=== PATIENT | male | born 1960 | race Caucasian/White ===

== ENCOUNTER 2018-06-18 04:00 | Emergency (ER) | payer MEDICARE ==
[2018-06-18 04:46] LABS: Bilirubin Negative (Negative); Blood, Urine Negative (Negative); Clarity CLEAR (Clear); Glucose, Urine (Dipstick) >=1000 mg/dL (Negative); Leukocyte Negative (Negative); Nitrite Negative (Negative); Protein, Urine (Dipstick) Negative (Neg-Trace); Specific Gravity, Urine 1.016 (1.002-1.036); Urobilinogen 0.2 mg/dL (0.2-1.0)
[2018-06-18 05:50] LABS: #Lymphocytes 0.7 thou/uL (1.20-3.40); #Monocytes 0.4 thou/uL (0.11-0.59); #Neutrophils 8.3 thou/uL (1.40-6.50); %Lymphocytes 7.3 % (21.0-51.0); %Monocytes 3.8 % (0.0-10.0); %Neutrophils 88.9 % (42.0-75.0); Hemoglobin 14.7 g/dL (14.0-18.0); Mean Corpuscular HGB CONC 34.9 g/dL (32.0-36.0); Mean Corpuscular Hemoglobin 31.3 pg (27.0-31.0); Mean Corpuscular Volume 89.7 fL (78.0-98.0); Mean Platelet Volume 6.8 fL (7.4-10.4); Platelet Count 304 thou/uL (130-400); RBC Distribution Width 10.7 % (11.5-14.5); Red Blood Cell (RBC) Count 4.71 mill/uL (4.70-6.10); White Blood Cell (WBC) Count 9.3 thou/uL (4.8-10.8)
[2018-06-18 06:12] LABS: ALT (SGPT) 25 U/L (8-55); AST (SGOT) 22 U/L (5-34); Acetaminophen Less than 6.0 mcg/mL (10.0-30.0); Albumin 3.9 g/dL (3.5-5.0); Alcohol Less than 10 mg/dL (Less than 10); Alkaline Phosphatase 96 U/L (40-150); Anion Gap 11 mmol/L (10-20); BUN (Urea Nitrogen) 15 mg/dL (8.4-25.7); Bilirubin, Total 0.2 mg/dL (0.2-1.2); Calc. Creatinine Clearance 0 mL/min (70-130); Calcium 8.8 mg/dL (7.8-10.44); Carbon Dioxide 24 mmol/L (22-29); Chloride 103 mmol/L (98-107); Estimated GFR-MDRD 73; Globulin 2.5 g/dL (2.4-3.5); Glucose 392 mg/dL (70-105); Potassium 4.2 mmol/L (3.5-5.1); Protein, Total 6.4 g/dL (6.0-8.3); Salicylate Less than 8.0 mg/dL (15.0-30.0); Sodium 134 mmol/L (136-145)
[2018-06-18 06:14] LABS: Amphetamine Not Detected (NotDetected); Barbiturates Screen Detected (NotDetected); Benzodiazepine Screen Not Detected (NotDetected); Cocaine Metabolite Screen Not Detected (NotDetected); Medtox Control Line Valid? VALID (VALID); Medtox Reader # READER 4; Methadone Not Detected (NotDetected); Methamphetamine Not Detected (NotDetected); Opiate Screen Not Detected (NotDetected); Oxycodone Screen Not Detected (NotDetected); Phencyclidine (PCP) Not Detected (NotDetected); THC/Cannabinoid Screen Not Detected (NotDetected); Tricyclic Screen Not Detected (NotDetected)
--- NOTE | 2018-06-18 07:36 | CT ---
CT HEAD NONCONTRAST: Date: 06/18/18 INDICATION: Syncope and collapse. FINDINGS: Reference is made to 11/30/14. There is normal size ventricular system. No acute intracranial hemorrhage, mass effect, or midline sh ift. Imaged paranasal sinuses are clear. IMPRESSION: No acute intracranial abnormalities. POS: DELISA
--- NOTE | 2018-06-18 07:37 | CT ---
CERVICAL SPINE CT NONCONTRAST: Date: 06/18/18 INDICATION: Syncope and collapse. Neck pain. FINDINGS: Moderate multilevel degenerative change is present within the cervical spine. There is no evidence of acute fracture or subluxation. IMPRESSION: No acute osseous abnormality of the cervical spine. POS: DELISA
--- NOTE | 2018-06-18 07:45 | RAD ---
FRONTAL VIEW CHEST: Date: 06/18/18 INDICATION: Syncope and collapse with dyspnea and hypoglycemia. COMPARISON: 11/30/14. FINDINGS: Cardiac silhouette is accentuated by portable technique. There is no lobar consolidation, effusion, o r pneumothorax. IMPRESSION: No focal consolidation. POS: ERNIEK
--- NOTE | 2018-06-21 12:47 | EKG ---
Test Reason : Blood Pressure : / mmHG Vent. Rate : 108 BPM Atrial Rate : 108 BPM P-R Int : 172 ms QRS Dur : 070 ms QT Int : 348 ms P-R-T Axes : 040 007 048 degrees QTc Int : 466 ms Sinus tachycardia Confirmed by DWIGHT VILLANUEVA ([id number]), editor magazine [employer]KIT VENEGAS ([id number]) on 06/21/2018 12:47:19 PM Referred By: Confirmed By:DWIGHT VILLANUEVA
== END 2018-06-18 06:45 | disposition home or self-care (01) ==
LOC: ERS 04:00
DX: E11.65 Type 2 diabetes mellitus with hyperglycemia (principal); F32.9 Major depressive disorder, single episode, unspecified; I10 Essential (primary) hypertension; E78.00 Pure hypercholesterolemia, unspecified
CPT/HCPCS: 36415; 36416; 70450; 71045; 72125; 80053; 80306; 80307; 81003; 84484; 85025; 87086; 93005; 96360

== ENCOUNTER 2021-02-15 19:55 | Emergency (ER) | payer MEDICARE | END 2021-02-15 21:42 | disposition home or self-care (01) | LOC: ERS 19:55 | DX: S82.841A Displaced bimalleolar fracture of right lower leg, initial encounter for closed fracture (principal); E10.9 Type 1 diabetes mellitus without complications; E78.5 Hyperlipidemia, unspecified; I10 Essential (primary) hypertension; Z79.899 Other long term (current) drug therapy; X58.XXXA Exposure to other specified factors, initial encounter | CPT/HCPCS: 29515 ==

== ENCOUNTER → 2021-02-22 | Day surgery (SDC) | payer MEDICARE, MEDICAID ==
[2021-02-21 13:27] VITALS: BMI 31.2
[~2021-02-22] MED LIST: Bupivacaine HCl 0.5%/Epinephrine 1:200,000/PF 30 ml Vial ONE; Fentanyl 100 MCG/2 ML VIAL ONE; HYDROcodone/Acetaminophen 5/325 mg Tablet ONE; HYDROmorphone 0.5 MG/0.5 ML SYRINGE ONE; Insulin Regular 300 UNITS/3 ML VIAL ONE; Ketorolac Tromethamine 30 MG/ML VIAL ONE; Lidocaine 1% (PF) 30 ML VIAL ONE; Lidocaine 1% PF 5 ML VIAL ONE; Midazolam HCl 2 mg/2 ml Vial ONE; Ondansetron PF 4 MG/2 ML Vial ONE; PROPOFOL 200 MG/20 ML VIAL ONE
== END ==
LOC: SDC 11:22
PROVIDERS: ATTEND Orthopaedic Surgery
PROC: 0QSJ04Z Reposition Right Fibula with Internal Fixation Device, Open Approach (ICD-10-PCS; principal; 2021-02-22)
PROC: 0QSG04Z Reposition Right Tibia with Internal Fixation Device, Open Approach (ICD-10-PCS; 2021-02-22)
PROC: 3E0T3BZ Introduction of Anesthetic Agent into Peripheral Nerves and Plexi, Percutaneous Approach (ICD-10-PCS; 2021-02-22)
DX: S82.841A Displaced bimalleolar fracture of right lower leg, initial encounter for closed fracture (principal); E10.9 Type 1 diabetes mellitus without complications; I25.10 Atherosclerotic heart disease of native coronary artery without angina pectoris; E78.00 Pure hypercholesterolemia, unspecified; G89.29 Other chronic pain; G40.909 Epilepsy, unspecified, not intractable, without status epilepticus; I10 Essential (primary) hypertension; E78.5 Hyperlipidemia, unspecified; M19.90 Unspecified osteoarthritis, unspecified site; Z79.899 Other long term (current) drug therapy; Z95.1 Presence of aortocoronary bypass graft; W13.8XXA Fall from, out of or through other building or structure, initial encounter
CPT/HCPCS: 36416; 76000; C1713; J0690; J1170; J1815; J1885; J2001; J2250; J2405; J2704; J3010

== ENCOUNTER 2023-01-15 18:42 | Observation (INO) | payer MEDICARE, MEDICAID ==
[~2023-01-15 18:42] MED LIST changes: -Bupivacaine HCl 0.5%/Epinephrine 1:200,000/PF 30 ml Vial ONE; -Fentanyl 100 MCG/2 ML VIAL ONE; -HYDROcodone/Acetaminophen 5/325 mg Tablet ONE; -HYDROmorphone 0.5 MG/0.5 ML SYRINGE ONE; -Insulin Regular 300 UNITS/3 ML VIAL ONE; +Iopamidol-370 76% 500 ML MDV (1 ML CHARGE) ONE; -Ketorolac Tromethamine 30 MG/ML VIAL ONE; -Lidocaine 1% (PF) 30 ML VIAL ONE; -Lidocaine 1% PF 5 ML VIAL ONE; -Midazolam HCl 2 mg/2 ml Vial ONE; -Ondansetron PF 4 MG/2 ML Vial ONE; -PROPOFOL 200 MG/20 ML VIAL ONE
[2023-01-15 19:45] LABS: #Eosinphils 0.1 thou/uL (0.0-0.7); #Monocytes 0.4 thou/uL (0.11-0.59); %Basophils 0.2 % (0.0-1.0); %Lymphocytes 34.1 % (21.0-51.0); %Monocytes 7.5 % (0.0-10.0); %Neutrophils 56.8 % (42.0-75.0); Hemoglobin 14.7 g/dL (14.0-18.0); Mean Corpuscular HGB CONC 35.3 g/dL (32.0-36.0); Mean Corpuscular Hemoglobin 31.5 pg (27.0-31.0); Mean Corpuscular Volume 89.3 fl (78.0-98.0); Mean Platelet Volume 8.9 fL (7.4-10.4); Platelet Count 221 10x3/uL (130-400); RBC Distribution Width 11.9 % (11.5-14.5); Red Blood Cell (RBC) Count 4.66 mill/uL (4.70-6.10); White Blood Cell (WBC) Count 5.2 10x3/uL (4.8-10.8)
[2023-01-15 20:12] LABS: ALT (SGPT) 21 U/L (8-55); AST (SGOT) 17 U/L (5-34); Alkaline Phosphatase 88 U/L (40-110); Anion Gap 16 mmol/L (10-20); BUN (Urea Nitrogen) 11 mg/dL (8.4-25.7); Bilirubin, Total 0.3 mg/dL (0.2-1.2); Calc. Creatinine Clearance 0 mL/min (70-130); Calcium 8.6 mg/dL (7.8-10.44); Carbon Dioxide 24 mmol/L (23-31); Chloride 108 mmol/L (98-107); Estimated GFR 99; Globulin 2.3 g/dL (2.4-3.5); Glucose 88 mg/dL (80-115); Potassium 3.5 mmol/L (3.5-5.1); Protein, Total 6.3 g/dL (5.8-8.1); Sodium 144 mmol/L (136-145)
[2023-01-15] MEDS ORDERED: Nitroglycerin 2% Ointment 1 INCH/1 GM Packet ONE (20:57)
[2023-01-15] MEDS ORDERED: Nitrazine Tape 1 ROLL ONE (20:57)
[2023-01-15] MEDS ORDERED: Aspirin Chewable 81 MG TAB PO PRN (23:12)
[2023-01-15] MEDS ORDERED: Nitroglycerin 0.4 MG TAB (25 Tab Bottle) SL PRN (23:12)
[2023-01-15] MEDS ORDERED: HumaLOG 300 UNITS/3 ML VIAL SC PRN ×2 (23:12)
[2023-01-15] MEDS ORDERED: Dextrose 50% Abboject 50 ML SYRINGE SLOW IVP PRN (23:12)
[2023-01-15] MEDS ORDERED: Dextrose 5% in Water 1,000 ML IV PRN (23:12)
[2023-01-15] MEDS ORDERED: Glucagon 1 MG/ML KIT IM PRN (23:12)
[2023-01-15] MEDS ORDERED: Morphine 2 MG/ML VIAL SLOW IVP PRN (23:18)
[2023-01-15] MEDS ORDERED: Ondansetron ODT 4 MG TAB PO PRN (23:19)
[2023-01-15] MEDS ORDERED: Ondansetron PF 4 MG/2 ML Vial IVP PRN (23:19)
[2023-01-15 23:24] LABS: Troponin I Less than 0.010 ng/mL (< 0.028)
[2023-01-16 00:02] VITALS: BMI 31.2
[2023-01-16] MEDS ORDERED: Lactated Ringer's 1,000 ML IV SCH (00:30)
[2023-01-16] MEDS: HYDROcodone/Acetaminophen 5/325 mg Tablet PO PRN ×2 (00:52→20:14)
[2023-01-16 02:31] LABS: Troponin I 0.015 ng/mL (< 0.028)
[2023-01-16] MEDS: Nitroglycerin 2% Ointment 1 INCH/1 GM Packet TOP SCH ×3 (05:36→21:03)
[2023-01-16 05:47] LABS: #Eosinphils 0.1 thou/uL (0.0-0.7); #Monocytes 0.4 thou/uL (0.11-0.59); #Neutrophils 3.5 thou/uL (1.40-6.50); %Basophils 0.4 % (0.0-1.0); %Eosinophils 1.1 % (0.0-10.0); %Lymphocytes 27.6 % (21.0-51.0); %Monocytes 7.7 % (0.0-10.0); Hemoglobin 14.2 g/dL (14.0-18.0); Mean Corpuscular HGB CONC 34.8 g/dL (32.0-36.0); Mean Corpuscular Hemoglobin 31.5 pg (27.0-31.0); Mean Corpuscular Volume 90.5 fl (78.0-98.0); Mean Platelet Volume 9.1 fL (7.4-10.4); Platelet Count 218 10x3/uL (130-400); RBC Distribution Width 11.9 % (11.5-14.5); Red Blood Cell (RBC) Count 4.51 mill/uL (4.70-6.10); White Blood Cell (WBC) Count 5.6 10x3/uL (4.8-10.8)
[2023-01-16 06:14] LABS: Anion Gap 11 mmol/L (10-20); BUN (Urea Nitrogen) 14 mg/dL (8.4-25.7); Calc. Creatinine Clearance 127 mL/min (70-130); Calcium 8.9 mg/dL (7.8-10.44); Carbon Dioxide 28 mmol/L (23-31); Chloride 106 mmol/L (98-107); Cholesterol 169 mg/dl (< 200 Desired); Estimated GFR 98; Glucose 219 mg/dL (80-115); HDL Cholesterol 42 mg/dL (>60 Neg Risk); LDL Cholesterol, Calculated 87 mg/dL; Potassium 4.2 mmol/L (3.5-5.1); Sodium 141 mmol/L (136-145); Triglycerides 201 mg/dL (Less than 150)
[2023-01-16] MEDS: Aspirin 81 mg Enteric Coated Tablet PO SCH (08:48)
[2023-01-16] MEDS ORDERED: Regadenoson 0.4 MG/5 ML SYRINGE ONE (10:16)
[2023-01-16] MEDS ORDERED: Hydrochlorothiazide 25 MG TAB PO SCH (21:00)
[2023-01-16] MEDS ORDERED: Rosuvastatin 20 MG TAB PO SCH (21:00)
[2023-01-16] MEDS ORDERED: Losartan 25 MG TAB PO SCH (21:00)
[2023-01-17] MEDS: Nitroglycerin 2% Ointment 1 INCH/1 GM Packet TOP SCH (05:11)
[2023-01-17] MEDS: HYDROcodone/Acetaminophen 5/325 mg Tablet PO PRN (05:13)
[2023-01-17 05:30] LABS: #Eosinphils 0.1 thou/uL (0.0-0.7); #Monocytes 0.7 thou/uL (0.11-0.59); #Neutrophils 6.5 thou/uL (1.40-6.50); %Basophils 0.2 % (0.0-1.0); %Monocytes 7.8 % (0.0-10.0); %Neutrophils 74.7 % (42.0-75.0); Hemoglobin 13.8 g/dL (14.0-18.0); Mean Corpuscular HGB CONC 35.1 g/dL (32.0-36.0); Mean Corpuscular Hemoglobin 31.3 pg (27.0-31.0); Mean Corpuscular Volume 89.1 fl (78.0-98.0); Mean Platelet Volume 8.9 fL (7.4-10.4); Platelet Count 195 10x3/uL (130-400); RBC Distribution Width 11.8 % (11.5-14.5); Red Blood Cell (RBC) Count 4.41 mill/uL (4.70-6.10); White Blood Cell (WBC) Count 8.7 10x3/uL (4.8-10.8)
[2023-01-17 05:53] LABS: Anion Gap 10 mmol/L (10-20); BUN (Urea Nitrogen) 12 mg/dL (8.4-25.7); Calc. Creatinine Clearance 124 mL/min (70-130); Calcium 8.9 mg/dL (7.8-10.44); Carbon Dioxide 28 mmol/L (23-31); Chloride 105 mmol/L (98-107); Estimated GFR 97; Glucose 71 mg/dL (80-115); Potassium 3.8 mmol/L (3.5-5.1); Sodium 139 mmol/L (136-145)
[2023-01-17] MEDS: Aspirin 81 mg Enteric Coated Tablet PO SCH (08:17)
[2023-01-17 09:31] VITALS: BP 123/60; TEMP 97.8
== END 2023-01-17 14:00 | disposition home or self-care (01) ==
LOC: ERS 18:42 → 2SW 22:32
PROVIDERS: ADMIT Student in an Organized Health Care Education/Training Program; ATTEND Internal Medicine
DX: R07.9 Chest pain, unspecified (principal); R06.09 Other forms of dyspnea; I25.10 Atherosclerotic heart disease of native coronary artery without angina pectoris; I10 Essential (primary) hypertension; E10.9 Type 1 diabetes mellitus without complications; E78.5 Hyperlipidemia, unspecified; I25.2 Old myocardial infarction; G40.909 Epilepsy, unspecified, not intractable, without status epilepticus; F32.A Depression, unspecified; Z79.899 Other long term (current) drug therapy; Z95.5 Presence of coronary angioplasty implant and graft; Z79.4 Long term (current) use of insulin
CPT/HCPCS: 71045; 71275; 78452; 80048 ×2; 80053; 80061; 82962 ×2; 84443; 84484 ×3; 85025 ×3; 93005; 93017; 93306; 94760; 99285; A9500; 36415; 36416; G0378; J2785; J7120; Q9967